=== PATIENT | female | born 1995 | race Caucasian/White ===

== ENCOUNTER 2021-10-08 07:04 | Inpatient (IN) | payer BC ==
[2021-10-08] MEDS ORDERED: LORazepam 2 MG/ML SDV ONE (07:10)
[2021-10-08] MEDS ORDERED: Magnesium Sulfate/Water 50 ML ONE ×3 (07:11→09:08)
[2021-10-08] MEDS ORDERED: Succinylcholine/Sod PF 100 MG/5 ML SYRINGE IV ONE (07:17)
[2021-10-08] MEDS ORDERED: Propofol 200 MG/20 ML SDV ONE (07:17)
[2021-10-08] MEDS ORDERED: ceFAZolin 1 GM Vial ONE (07:34)
[2021-10-08] MEDS ORDERED: Oxytocin 10 Units/1 ML SDV ONE (07:38)
[2021-10-08] MEDS ORDERED: fentaNYL 250 MCG/5 ML SDV ONE (07:41)
[2021-10-08] MEDS ORDERED: Ondansetron 4 MG/2 ML SDV ONE (07:45)
[2021-10-08] MEDS ORDERED: Carboprost Tromethamine 250 MCG/1 ML Amp ONE (07:47)
[2021-10-08] MEDS ORDERED: LORazepam 2 MG/ML SDV IVPUSH ONE (08:10)
[2021-10-08] MEDS ORDERED: Magnesium Sulfate/Water 4 GM in Premix Bag 1 BAG IV ONE (08:10)
[2021-10-08] MEDS ORDERED: Magnesium Sulfate/Water 2 GM in Premix Bag 1 BAG IV ONE (08:10)
[2021-10-08] MEDS ORDERED: Lactated Ringers 1,000 ML ONE ×4 (08:18)
[2021-10-08] MEDS ORDERED: Lactated Ringers 0 ML ONE (08:18)
[2021-10-08] MEDS ORDERED: Sodium Chloride 0.9% 10 ML Syringe FLUSH PRN (08:24)
[2021-10-08] MEDS ORDERED: Lactated Ringers 1,000 ML IV SCH (08:30)
[2021-10-08] MEDS ORDERED: Oxytocin/Lactated Ringers 10 UNIT/1,000 ML BAG IV SCH (08:33)
[2021-10-08] MEDS ORDERED: Calcium Gluconate 10% 1 GM/10 ML SDV IV PRN (08:33)
[2021-10-08] MEDS ORDERED: Morphine 2 MG/ML SYRINGE IVPUSH PRN (08:33)
[2021-10-08] MEDS ORDERED: Naloxone 0.4 MG/ML SDV IVPUSH PRN (08:33)
[2021-10-08] MEDS ORDERED: ePHEDrine 50 MG/ML SDV IVPUSH PRN (08:33)
[2021-10-08] MEDS ORDERED: Ondansetron 4 MG/2 ML SDV IV PRN (08:33)
[2021-10-08] MEDS ORDERED: diphenhydrAMINE 50 MG/ML SDV IVPUSH PRN (08:33)
[2021-10-08] MEDS: Lactated Ringers 1,000 ML IV SCH (08:51)
[2021-10-08] MEDS ORDERED: fentaNYL 100 MCG/2 ML SDV IVPUSH PRN (08:56)
[2021-10-08] MEDS ORDERED: Ondansetron 4 MG/2 ML SDV IVPUSH PRN (08:56)
[2021-10-08] MEDS ORDERED: Sodium Chloride 0.9% 10 ML Syringe FLUSH SCH (09:00)
[2021-10-08] MEDS ORDERED: Sodium Chloride 0.9% 50 ML ONE (09:23)
[2021-10-08] MEDS: Magnesium Sulfate/Water 40 GM/1,000 ML BAG IV SCH (10:30)
[2021-10-08] MEDS: HYDROmorphone 0.5 MG/0.5 ML Syringe IVPUSH PRN ×2 (11:34→13:32)
[2021-10-08] MEDS: Acetaminophen/oxyCODONE 325-5 MG Tab PO PRN ×2 (15:48→19:33)
[2021-10-09] MEDS: Acetaminophen/oxyCODONE 325-5 MG Tab PO PRN ×5 (03:55→22:05)
[2021-10-09] MEDS: Lactated Ringers 1,000 ML IV SCH (03:58)
[2021-10-09] MEDS: Magnesium Sulfate/Water 40 GM/1,000 ML BAG IV SCH (06:39)
[2021-10-09] MEDS ORDERED: Gadobenate Dimeglumine 529 MG/ML 20 ML SDV IVPUSH ONE (11:59)
[2021-10-09] MEDS ORDERED: Sodium Chloride 0.9% 10 ML Syringe FLUSH SCH (12:00)
[2021-10-09] MEDS ORDERED: LORazepam 2 MG/ML SDV IVPUSH PRN (14:38)
[2021-10-09] MEDS: levETIRAcetam 500 MG Tab PO SCH ×2 (16:24→22:27)
[2021-10-10] MEDS: Acetaminophen/oxyCODONE 325-5 MG Tab PO PRN (06:19)
[2021-10-10] MEDS: levETIRAcetam 500 MG Tab PO SCH (09:10)
== END 2021-10-10 11:10 | disposition home or self-care (01) | DRG 540 ==
LOC: JD.SDS 07:04 → JD.ICU 08:04 → JD.SDS 08:06 → JD.OB 10-09 10:39
PROVIDERS: ADMIT Obstetrics & Gynecology; ATTEND Obstetrics & Gynecology
PROC: 10D00Z1 Extraction of Products of Conception, Low, Open Approach (ICD-10-PCS; principal; 2021-10-08)
DX: O15.1 Eclampsia complicating labor (principal); Z3A.36 36 weeks gestation of pregnancy; Z37.0 Single live birth; G93.89 Other specified disorders of brain; O99.52 Diseases of the respiratory system complicating childbirth; J45.909 Unspecified asthma, uncomplicated; O99.354 Diseases of the nervous system complicating childbirth
CPT/HCPCS: 01961; 36415; 70553; 70553-26; 80053; 82565; 82570; 83735; 84156; 84450; 84460; 85007; 85027; 85384; 85610; 85730; 86850; 86870; 86900; 86901; 99291; A9270-GY; A9577; J0330; J0690; J1170; J2060; J2370; J2405; J2590; J2704; J3010; J3475; J7120

== ENCOUNTER 2023-10-21 05:27 | Inpatient (IN) | payer BC ==
[~2023-10-21 05:27] MED LIST: Oxytocin/Lactated Ringers 30 UNIT/500 ML BAG IV SCH; Sodium Chloride 0.9% 10 ML Syringe FLUSH PRN; ceFAZolin 2 GM in Sodium Chloride 0.9% 50 ML IV ONE
[2023-10-21] MEDS ORDERED: Lactated Ringers 1,000 ML IV SCH (05:45)
[2023-10-21 05:57] LABS: BASOPHILS PERCENT AUTO 0.2 % (0.0-1.0); EOSINOPHILS ABSOLUTE AUTO 0.1 K/mm3 (0.0-0.4); HEMATOCRIT 37.9 % (37.0-47.0); HEMOGLOBIN 12.7 gm/dl (12.0-16.0); IMMATURE GRAN ABSOLUTE AUTO 0.07 K/mm3 (0.00-0.05); IMMATURE GRAN PERCENT AUTO 0.8 % (0.0-0.4); LYMPHOCYTES ABSOLUTE AUTO 1.9 K/mm3 (1.0-4.8); LYMPHOCYTES PERCENT AUTO 21.6 % (24.0-44.0); MEAN CORPUSCULAR HEMOGLOBIN 27.5 pg (28.0-32.0); MEAN CORPUSCULAR HGB CONC 33.5 g/dl (32.0-36.0); MONOCYTES ABSOLUTE AUTO 0.9 K/mm3 (0.0-0.8); MONOCYTES PERCENT AUTO 9.9 % (0.0-8.0); NEUTROPHILS PERCENT AUTO 66.5 % (41.0-71.0); PLATELET COUNT,PLT 270 K/mm3 (150-400); RED BLOOD CELL COUNT 4.62 M/mm3 (4.10-5.30)
[2023-10-21] MEDS: Metoclopramide 10 MG/2 ML SDV IVPUSH ONE (07:19)
[2023-10-21] MEDS: Citric Acid/Sodium Citrate Solution 30 ML Cup PO ONE (07:19)
[2023-10-21] MEDS ORDERED: Oxytocin 10 Units/1 ML SDV ONE (07:32)
[2023-10-21] MEDS ORDERED: fentaNYL 100 MCG/2 ML SDV ONE (07:32)
[2023-10-21] MEDS ORDERED: ceFAZolin 2 GM Vial ONE (07:32)
[2023-10-21] MEDS ORDERED: Morphine PF 10 MG/10 ML SDV ONE (07:32)
[2023-10-21] MEDS ORDERED: Phenylephrine 1% 10 MG/ML SDV ONE (07:45)
[2023-10-21] MEDS ORDERED: Lactated Ringers 1,000 ML ONE (07:59)
[2023-10-21] MEDS ORDERED: Ondansetron 4 MG/2 ML SDV ONE (08:06)
[2023-10-21] MEDS ORDERED: Ketorolac 30 MG/ML SDV ONE (08:06)
[2023-10-21] MEDS ORDERED: fentaNYL 100 MCG/2 ML SDV IVPUSH PRN (08:09)
[2023-10-21] MEDS ORDERED: Ondansetron 4 MG/2 ML SDV IVPUSH PRN (08:09)
[2023-10-21 08:28] LABS: PCO2 UMBILICAL ARTERIAL 68.7 (42-58); PH,UMBILICAL ARTERIAL 7.22 (7.22-7.32)
[2023-10-21 08:29] LABS: BICARBONATE,VENOUS UMBILICAL 25.3 (19-24); PCO2 UMBILICAL VENOUS 48.9 (32.8-38.6); PH,UMBILICAL VENOUS 7.33 (7.28-7.40)
[2023-10-21] MEDS ORDERED: Lactated Ringers 1,000 ML IV ONE (08:30)
[2023-10-21] MEDS ORDERED: Ondansetron 4 MG/2 ML SDV IV PRN (10:06)
[2023-10-21] MEDS ORDERED: Acetaminophen/oxyCODONE 325-5 MG Tab PO PRN ×2 (10:06)
[2023-10-21] MEDS ORDERED: Naloxone 0.4 MG/ML SDV IVPUSH PRN (10:06)
[2023-10-21] MEDS ORDERED: ePHEDrine 50 MG/ML SDV IVPUSH PRN (10:06)
[2023-10-21] MEDS ORDERED: diphenhydrAMINE 50 MG/ML SDV IVPUSH PRN (10:06)
[2023-10-21] MEDS ORDERED: Sodium Chloride 0.9% 10 ML Syringe FLUSH PRN (10:06)
[2023-10-21] MEDS: diphenhydrAMINE 50 MG/ML SDV IVPUSH PRN (10:20)
[2023-10-21] MEDS: Amoxicillin 500 MG Cap PO SCH ×2 (10:41→10:46)
[2023-10-21] MEDS: lamoTRIgine 100 MG Tab PO SCH ×2 (10:42→10:45)
[2023-10-21] MEDS: Sertraline 50 MG Tab PO SCH ×2 (10:42→10:45)
[2023-10-21] MEDS: Dextrose 5%-Lactated Ringers 1,000 ML IV SCH (13:26)
[2023-10-21] MEDS: Ketorolac 30 MG/ML SDV IVPUSH SCH (14:28)
[2023-10-22 06:26] LABS: BASOPHILS PERCENT AUTO 0.2 % (0.0-1.0); EOSINOPHILS ABSOLUTE AUTO 0.3 K/mm3 (0.0-0.4); HEMATOCRIT 34.8 % (37.0-47.0); HEMOGLOBIN 11.6 gm/dl (12.0-16.0); IMMATURE GRAN ABSOLUTE AUTO 0.07 K/mm3 (0.00-0.05); IMMATURE GRAN PERCENT AUTO 0.6 % (0.0-0.4); LYMPHOCYTES ABSOLUTE AUTO 1.8 K/mm3 (1.0-4.8); LYMPHOCYTES PERCENT AUTO 14.3 % (24.0-44.0); MEAN CORPUSCULAR HEMOGLOBIN 27.8 pg (28.0-32.0); MEAN CORPUSCULAR HGB CONC 33.3 g/dl (32.0-36.0); MEAN CORPUSCULAR VOLUME 83.3 fl (83.0-99.0); MEAN PLATELET VOLUME 9.7 fl (9.4-12.3); MONOCYTES ABSOLUTE AUTO 1.2 K/mm3 (0.0-0.8); MONOCYTES PERCENT AUTO 9.6 % (0.0-8.0); NEUTROPHILS ABSOLUTE AUTO 9.1 K/mm3 (1.8-7.7); NEUTROPHILS PERCENT AUTO 73.3 % (41.0-71.0); PLATELET COUNT,PLT 257 K/mm3 (150-400); RED BLOOD CELL COUNT 4.18 M/mm3 (4.10-5.30); WHITE BLOOD CELL COUNT,WBC 12.41 K/mm3 (3.9-11.3)
[2023-10-22] MEDS: Ibuprofen 600 MG Tab PO PRN (09:14)
[2023-10-22] MEDS: Measles, Mumps & Rubella Vaccine 0.5 ML SDV SUBCUT ONE (17:42)
[2023-10-22] MEDS: Docusate Sodium 100 MG Cap PO PRN (21:20)
== END 2023-10-23 13:10 | disposition home or self-care (01) | DRG 540 ==
LOC: JD.OB 05:27
PROVIDERS: ADMIT Obstetrics & Gynecology; ATTEND Obstetrics & Gynecology
PROC: 10D00Z1 Extraction of Products of Conception, Low, Open Approach (ICD-10-PCS; principal; 2023-10-21 08:00)
DX: O44.43 Low lying placenta NOS or without hemorrhage, third trimester (principal); O34.211 Maternal care for low transverse scar from previous cesarean delivery; O35.8XX0 Maternal care for other (suspected) fetal abnormality and damage, not applicable or unspecified; Z3A.37 37 weeks gestation of pregnancy; Z37.0 Single live birth; Z85.841 Personal history of malignant neoplasm of brain
CPT/HCPCS: 36415; 36600; 59025; 82803; 85025; 86592; 86850; 86870; 86900; 86901; 90471; 90707; 94762; A9270-GY; J0690; J1200; J1885; J2274; J2371; J2405; J2590; J2765; J3010; J7120; J7121